=== PATIENT | male | born 1955 | race Caucasian/White ===

== ENCOUNTER → 2017-06-26 | Outpatient (CLI) | payer OTHER ==
[~2017-06-26] MED LIST: ALLO100T PO; APIX5TAB PO; ATEN25TA PO; ATOR20TA15 PO; CHLORHEXIDINE GLUCONATE 2 % 1 PACK (2 CLOTHS) TOPICAL PRN; DEXTROSE 5% IN WATE 1000ML INJ 1,000 ML IV SCH; LACTATED RINGER'S 1000 ML IV PRN; LIDOCAINE HCL 1% PF 5 ML SYRINGE OTHER ONE; METOPROLOL TARTRATE 25 MG TAB PO PRN; MULT1TAB46 PO; OMEP20TA93 PO; POVIDONE IODINE 5% (ANTISEPSIS KIT) 4 APPLICATIONS EACH NARE PRN; PROPOFOL 200 MG/20 ML AMP IV ONE; SODIUM CHLORID 0.9% 500 ML IV PRN
--- NOTE | 2017-06-26 08:09 | GIPROC ---
[facility] [address] [facility]. [facility], [address] COLONOSCOPY PROCEDURE REPORT EXAM DATE: 06/26/2017 PATIENT NAME: Grayson Ashton MR #: [id number] BIRTHDATE: 1955 ENDOSCOPIST: Shahla Crow MD ORDER #: [id number] STOVE BOTTOM WORKER: Juli Blanchard and Emilia Lazo STATUS: outpatient INDICATIONS: The patient is a 62 yr old male here for a colonoscopy due to Screening, Personal history of polyps. PROCEDURE PERFORMED: Total Colonoscopy with polypectomy with biopsy forceps. MEDICATIONS: See Anesthesia Record ESTIMATED BLOOD LOSS: None CONSENT: The patient understands the risks and benefits of the procedure and understands that these risks include, but are not limited to: sedation, allergic reaction, infection, perforation and/or bleeding. Alternative means of evaluation and treatment include, among others: physical exam, x-rays, and/or surgical intervention. The patient elects to proceed with this endoscopic procedure. DESCRIPTION OF PROCEDURE: checked for proper function. Hand hygiene and appropriate measures for infection prevention was taken. After the risks, benefits and alternatives of the procedure were thoroughly explained, Informed consent was verified, confirmed and timeout was successfully executed by the treatment team. A digital exam was performed. The endoscope was introduced through the anus and advanced to the cecum, which was identified by the appendiceal orifice, tri-radiate valve, and ileocecal valve. The prep quality was excellent. The instrument was then slowly withdrawn as the colon was fully examined. There were no mucosal abnormalities noted with the cecum, or ascending colon. A tiny 1-2 mm polyp was removed with biopsy forceps from the transverse colon. There were no abnormlaties in the descending colon. In the sigmoid, 4 x 2-3 mm polyps were removed, as well as diverticulosis. An additional polyp was removed from the rectum. The scope was then completely withdrawn from the patient and the procedure terminated. ADVERSE EVENTS: There were no complications. WITHDRAWL TIME: DEGREE OF DIFFICULTY: IMPRESSIONS: Normal Colon RECOMMENDATIONS: Repeat colonoscopy 3 years PATIENT CONDITION: Stable DISPOSITION: Home RECALL: 3 years Shahla Crow MD eSigned: Shahla Crow MD 06/26/2017 8:09 AM cc: Dr. Wong PATIENT NAME: Grayson Ashton MR#: [id number]
[2017-06-26 08:42] VITALS: BP 112/70; PULSE 52; RESP 16; O2SAT 96
--- NOTE | 2017-06-26 13:09 | EKG ---
Date Performed: 06/26/2017 Time Performed: 06:42:06 PTAGE: 62 years EKG: SINUS BRADYCARDIA WITH FIRST DEGREE AV BLOCK MODERATE VOLTAGE CRITERIA FOR LVH, CONSIDER NO RMAL VARIANT ABNORMAL ECG NO PREVIOUS TRACING DOCTOR: Sudhir Ramirez Interpretating Date/Time 06/26/2017 13:05:04
== END ==
LOC: HEND 05:53
PROVIDERS: ATTEND Colon & Rectal Surgery
DX: Z12.11 Encounter for screening for malignant neoplasm of colon (principal); Z86.010 Personal history of colon polyps; D12.3 Benign neoplasm of transverse colon; D12.5 Benign neoplasm of sigmoid colon; K57.30 Diverticulosis of large intestine without perforation or abscess without bleeding; K62.1 Rectal polyp; R94.31 Abnormal electrocardiogram [ECG] [EKG]; I44.0 Atrioventricular block, first degree
CPT/HCPCS: 00812; 45380; 88305; 93005; J7120